=== PATIENT | female | born 1970 | race Caucasian/White ===

== ENCOUNTER 2017-11-06 09:28 | Observation (INO) | payer MEDICAID ==
[~2017-11-06] VITALS: Ht 160 cm; Wt 56.8 kg
[2017-11-06 09:29] VITALS: BP 174/102; PULSE 110; RESP 18; TEMP 98.6; O2SAT 100
[2017-11-06] MEDS ORDERED: SODIUM CHLOR 0.9% 1000 ML INJ 1,000 ML IV ONE ×2 (10:00)
[2017-11-06 10:04] LABS: AUTOMATED NEUTROPHIL # 6.3 TH/MM3 (1.8-7.7); BASOPHIL # 0.1 TH/MM3 (0-0.2); BASOPHIL % 0.8 % (0.0-2.0); EOSINOPHIL # 0.3 TH/MM3 (0-0.4); EOSINOPHIL % 3.2 % (0.0-4.0); HEMATOCRIT 44.4 % (35.0-46.0); HEMO FLAGS DIFF FINAL; LYMPHOCYTE # 1.3 TH/MM3 (1.0-4.8); MEAN CELL VOLUME 83.1 FL (80.0-100.0); MEAN CORPUSCULAR HEMOGLOBIN 27.5 PG (27.0-34.0); MEAN CORPUSCULAR HGB CONC 33.1 % (32.0-36.0); MONO % 6.8 % (0.0-8.0); NEUT % 74.2 % (16.0-70.0); PLATELET COUNT 227 TH/MM3 (150-450); RED BLOOD COUNT 5.34 MIL/MM3 (4.00-5.30); RED CELL DISTRIBUTION WIDTH 15.9 % (11.6-17.2); WHITE BLOOD COUNT 8.5 TH/MM3 (4.0-11.0)
[2017-11-06 10:07] LABS: BLOOD, URINE NEG (NEG); COMMENT (UR) CULT NOT INDICATED; CULTURE IF INDICATED CULT NOT INDICATED; GLUCOSE,URINE 1000 mg/dL (NEG); KETONE, URINE 150 mg/dL (NEG); MUCUS URINE FEW /lpf (OCC); NITRITE,URINE NEG (NEG); SQUAMOUS EPITHELIAL CELL URINE <1 /hpf (0-5); URINE COLOR COLORLESS (YELLW/STRAW)
[2017-11-06 10:22] LABS: ALT (GPT) 18 U/L (10-53); ANION GAP 14 MEQ/L (5-15); AST (GOT) 9 U/L (15-37); BICARBONATE 16.6 MEQ/L (21.0-32.0); BLOOD UREA NITROGEN 13 MG/DL (7-18); CHLORIDE 99 MEQ/L (98-107); GLOMERULAR FILTRATION RATE 76 ML/MIN (>89); SODIUM (NA) 130 MEQ/L (136-145)
[2017-11-06 10:24] LABS: TOTAL BILIRUBIN ADULT 0.4 MG/DL (0.2-1.0)
[2017-11-06 10:27] LABS: ALKALINE PHOSPHATASE 106 U/L (45-117)
--- NOTE | 2017-11-06 10:42 | PD ---
HPI Chief Complaint: Diabetic Time Seen by Provider: 09:49 Travel History International Travel<30 days: No Contact w/Intl Traveler<30days: No Traveled to known affect area: No History of Present Illness HPI 47-year-old presents to the emergency department feeling poorly for the past several months, especially over the past week, found to have hyperglycemia. She states that she feeling poorly since about July. Over the past week she's felt especially bad with increased thirst, loss, frequent urination. She is a strong family history diabetes. She checked her blood sugar on her mom's meter and her blood sugar significant only elevated so she came to the emergency department. History Past Medical History Medical History: Denies Significant Hx Tetanus Vaccination: > 5 Years Influenza Vaccination: No LMP: 10/25/17 : 3 Past Surgical History Surgical History: No Previous Surgery Social History Alcohol Use: No Tobacco Use: No Allergies-Medications (Allergen,Severity, Reaction): Coded Allergies: No Known Allergies (Verified Allergy, Unknown, 11/06/17) Reported Meds & Prescriptions Reported Meds & Active Scripts Active No Active Prescriptions or Reported Medications Review of Systems Except as stated in HPI: all other systems reviewed are Neg Physical Exam Narrative GENERAL: 47-year-old woman, no acute distress. SKIN: Focused skin assessment warm/dry. Decreased skin turgor. HEAD: Atraumatic. Normocephalic. EYES: Pupils equal and round. No scleral icterus. No injection or drainage. ENT: No nasal bleeding or discharge. Mucous membranes pink and moist. NECK: Trachea midline. No JVD. CARDIOVASCULAR: Heart rate rapid. Regular rate and rhythm. No murmur appreciated. RESPIRATORY: No accessory muscle use. Clear to auscultation. Breath sounds equal bilaterally. GASTROINTESTINAL: Abdomen soft, non-tender, nondistended. Hepatic and splenic margins not palpable. MUSCULOSKELETAL: No obvious deformities. No edema. NEUROLOGICAL: Awake and alert. No obvious cranial nerve deficits. Motor grossly within normal limits. Normal speech. Data Data Last Documented VS Vital Signs Date Time Temp Pulse Resp B/P (MAP) Pulse Ox O2 Delivery O2 Flow Rate FiO2 11/06/17 12:23 97.8 98 16 131/80 (97) 100 Room Air Orders Orders Complete Blood Count With Diff (11/06/17 09:50) Comprehensive Metabolic Panel (11/06/17 09:50) Urinalysis - C+S If Indicated (11/06/17 09:50) Iv Access Insert/Monitor (11/06/17 09:50) Sodium Chlor 0.9% 1000 Ml Inj (Ns 1000 M (11/06/17 10:00) Sodium Chlor 0.9% 1000 Ml Inj (Ns 1000 M (11/06/17 10:00) Insulin Aspart Inj (Novolog Inj) (11/06/17 10:45) Blood Gas Venous (Vbg) (11/06/17 10:58) Ondansetron Inj (Zofran Inj) (11/06/17 11:00) Beta Hydroxybutyrate (Acetone) (11/06/17 11:57) Admit Order (Ed Use Only) (11/06/17 ) Labs Laboratory Tests Test 11/06/17 09:50 11/06/17 10:58 White Blood Count 8.5 TH/MM3 Red Blood Count 5.34 MIL/MM3 Hemoglobin 14.7 GM/DL Hematocrit 44.4 % Mean Corpuscular Volume 83.1 FL Mean Corpuscular Hemoglobin 27.5 PG Mean Corpuscular Hemoglobin Concent 33.1 % Red Cell Distribution Width 15.9 % Platelet Count 227 TH/MM3 Mean Platelet Volume 7.7 FL Neutrophils (%) (Auto) 74.2 % Lymphocytes (%) (Auto) 15.0 % Monocytes (%) (Auto) 6.8 % Eosinophils (%) (Auto) 3.2 % Basophils (%) (Auto) 0.8 % Neutrophils # (Auto) 6.3 TH/MM3 Lymphocytes # (Auto) 1.3 TH/MM3 Monocytes # (Auto) 0.6 TH/MM3 Eosinophils # (Auto) 0.3 TH/MM3 Basophils # (Auto) 0.1 TH/MM3 CBC Comment DIFF FINAL Differential Comment Urine Color COLORLESS Urine Turbidity CLEAR Urine pH 5.0 Urine Specific [place] 1.033 Urine Protein NEG mg/dL Urine Glucose (UA) 1000 mg/dL Urine Ketones 150 mg/dL Urine Occult Blood NEG Urine Nitrite NEG Urine Bilirubin NEG Urine Urobilinogen LESS THAN 2.0 MG/DL Urine Leukocyte Esterase NEG Urine RBC 2 /hpf Urine WBC LESS THAN 1 /hpf Urine Squamous Epithelial Cells <1 /hpf Urine Mucus FEW /lpf Microscopic Urinalysis Comment CULT NOT INDICATED Blood Urea Nitrogen 13 MG/DL Creatinine 0.81 MG/DL Random Glucose 517 MG/DL Total Protein 8.4 GM/DL Albumin 3.9 GM/DL Calcium Level 9.7 MG/DL Alkaline Phosphatase 106 U/L Aspartate Amino Transf (AST/SGOT) 9 U/L Alanine Aminotransferase (ALT/SGPT) 18 U/L Total Bilirubin 0.4 MG/DL Sodium Level 130 MEQ/L Potassium Level 4.0 MEQ/L Chloride Level 99 MEQ/L Carbon Dioxide Level 16.6 MEQ/L Anion Gap 14 MEQ/L Estimat Glomerular Filtration Rate 76 ML/MIN B-Hydroxybutyrate 5.11 MMOL/L Blood Gas Patient Temperature 98.6 Venous Blood pH 7.24 Venous Blood Partial Pressure CO2 36 mmHg Venous Blood Partial Pressure O2 31 mmHg Venous Blood HCO3 15 mmol/L Venous Blood Oxygen Saturation 52 % Venous Blood Oxygen Content 9.3 Vol % Venous Blood Base Excess -11.5 mmol/L Blood Gas Inspired Oxygen 21 % MDM Medical Decision Making Medical Screen Exam Complete: Yes Emergency Medical Condition: Yes Interpretation(s) LABS: CBC is unremarkable. CMP remarkable for bicarbonate 16.6, glucose 517, UA with glucose, some ketones VBG shows a little bit of acidosis. Differential Diagnosis Hyperglycemia, dehydration, infection, other Narrative Course Medical decision making The 47 showed woman presents emergent department with hyperglycemia likely related to undiagnosed diabetes. She looks well. Bicarbonates a little bit low but no anion gap. Given IV fluid rehydration. We'll start on oral medications. Will need close follow-up. FINAL: 47-year-old woman, hyperglycemic what appears to be early or very mild ketoacidosis. I think she can be treated with aggressive subcutaneous insulin. I discussed with [place] hospitalist to her going to admit the patient. If she worsens at all or needs insulin drip, will admit the ICU. Diagnosis Primary Impression: Hyperglycemia Additional Impression: Ketoacidosis Admitting Information Admitting Physician Requests: Admit Scripts No Active Prescriptions or Reported Meds Holden Soria MD Nov 06, 2017 10:42
[2017-11-06] MEDS ORDERED: INSULIN ASPART 1,000 UNITS/10 ML VIAL SQ ONE (10:45)
[2017-11-06] MEDS ORDERED: ONDANSETRON HCL 4 MG/2 ML VIAL IV PUSH ONE (11:00)
[2017-11-06 11:16] LABS: BLOOD GAS VENOUS BASE EXCESS -11.5 mmol/L (-2-2); BLOOD GAS VENOUS HCO3 15 mmol/L (22-26); BLOOD GAS VENOUS O2 CONTENT 9.3 Vol % (9.0-17.0); BLOOD GAS VENOUS O2 HGB SAT 52 % (70-76); BLOOD GAS VENOUS PCO2 36 mmHg (44-48); BLOOD GAS VENOUS PO2 31 mmHg (35-40); BLOOD GAS VENOUS pH 7.24 (7.360-7.400); TEMP CORR TO 98.6
[2017-11-06 11:22] LABS: FIO2 21 %; STAT NO
[2017-11-06 12:23] VITALS: BP 131/80; PULSE 98; RESP 16; TEMP 97.8; O2SAT 100
[2017-11-06] MEDS ORDERED: SODIUM CHLOR 0.9% 1000 ML INJ 1,000 ML IV SCH (12:54)
[2017-11-06] MEDS ORDERED: DEXTROSE 50% IN WATER 50 ML VIAL(D50) IV PUSH PRN (13:00)
[2017-11-06] MEDS ORDERED: SENNOSIDES 8.6 MG TAB PO PRN (13:00)
[2017-11-06] MEDS ORDERED: BISACODYL 10 MG SUPP RECTAL PRN (13:00)
[2017-11-06] MEDS ORDERED: MAGNESIUM HYDROXIDE SUSP 30 ML CUP PO PRN (13:00)
[2017-11-06] MEDS ORDERED: SODIUM CHLORIDE 0.9% FLUSH 10 ML FLUSH IV FLUSH PRN (13:00)
[2017-11-06] MEDS ORDERED: NALOXONE HCL 0.4 MG/ML AMP IV PUSH PRN (13:00)
[2017-11-06] MEDS ORDERED: LACTULOSE SYRUP 20 GM/30 ML CUP PO PRN (13:00)
[2017-11-06] MEDS ORDERED: GLUCAGON 1 MG/ML VIAL OTHER PRN (13:00)
[2017-11-06] MEDS ORDERED: ONDANSETRON HCL 4 MG/2 ML VIAL IVP PRN (13:00)
[2017-11-06 13:03] VITALS: O2SAT 100
[2017-11-06] MEDS: SODIUM CHLOR 0.9% 1000 ML INJ 1,000 ML IV SCH (13:24)
--- NOTE | 2017-11-06 13:44 | HHI.PR ---
Objective Vitals Vital Signs Date Time Temp Pulse Resp B/P (MAP) Pulse Ox O2 Delivery O2 Flow Rate FiO2 11/06/17 13:03 100 21 11/06/17 12:23 97.8 98 16 131/80 (97) 100 Room Air 11/06/17 09:37 16 Room Air 11/06/17 09:29 98.6 110 18 174/102 (126) 100 I/O 11/05/17 11/05/17 11/05/17 11/06/17 11/06/17 11/06/17 07:00 15:00 23:00 07:00 15:00 23:00 Intake Total 2000 ml Balance 2000 ml Intake IV Total 2000 ml Result Diagram: 11/06/17 0950 11/06/17 0950 Physician Certification Order for Inpatient Services The services are ordered in accordance with Medicare regulations or non- Medicare payer requirements, as applicable. In the case of services not specified as inpatient-only, they are appropriately provided as inpatient services in accordance with the 2-midnight benchmark. days is the estimated time the patient will need to remain in the hospital, assuming treatment plan goals are met and no additional complications. Cleopatra Simons MD Nov 06, 2017 13:44
[2017-11-06] MEDS ORDERED: ENOXAPARIN SODIUM 40 MG/0.4 ML SYRINGE SQ SCH (14:00)
--- NOTE | 2017-11-06 14:02 | HHI.HP ---
[facility] Primary Care Physician No Primary Care Physician Admission Diagnosis hyperglycemia, early ketosis Diagnoses: Chief Complaint: elevated Blood sugar Travel History International Travel<30 Days: No Contact w/Intl Traveler <30 Da: No Traveled to Known Affected Are: No History of Present Illness 47-year-old presents to the emergency department feeling poorly for the past several months, especially over the past week, found to have hyperglycemia. She states that she feeling poorly since about July. Over the past week she's felt especially bad with increased thirst, loss, frequent urination. She is a strong family history diabetes. She checked her blood sugar on her mom's meter and her blood sugar significant only elevated so she came to the emergency department. Patient also felt nauseated but did not vomit. Denies chest pain, sob, palpitations. No fever or chills. No abdominal pain. Review of Systems Except as stated in HPI: all other systems reviewed are Neg Past Family Social History Past Medical History None Past Surgical History 3 CS Reported Medications Reported Meds & Active Scripts Active No Active Prescriptions or Reported Medications Allergies: Coded Allergies: No Known Allergies (Verified Allergy, Unknown, 11/06/17) Family History Mother with DM, HTN Aunt with DM, stroke Social History Denies EtOH use, tobacco use or illicit drug use Physical Exam Vital Signs Vital Signs Date Time Temp Pulse Resp B/P (MAP) Pulse Ox O2 Delivery O2 Flow Rate FiO2 11/06/17 13:03 100 21 11/06/17 12:23 97.8 98 16 131/80 (97) 100 Room Air 11/06/17 09:37 16 Room Air 11/06/17 09:29 98.6 110 18 174/102 (126) 100 Physical Exam GENERAL: This is a well-nourished, well-developed patient, in no apparent distress. SKIN: No rashes, ecchymoses or lesions. Cool and dry. HEAD: Atraumatic. Normocephalic. No temporal or scalp tenderness. EYES: Pupils equal round and reactive. Extraocular motions intact. No scleral icterus. No injection or drainage. ENT: Nose without bleeding, purulent drainage or septal hematoma. Throat without erythema, tonsillar hypertrophy or exudate. Uvula midline. Airway patent. NECK: Trachea midline. No JVD or lymphadenopathy. Supple, nontender, no meningeal signs. CARDIOVASCULAR: Regular rate and rhythm without murmurs, gallops, or rubs. RESPIRATORY: Clear to auscultation. Breath sounds equal bilaterally. No wheezes , rales, or rhonchi. GASTROINTESTINAL: Abdomen soft, non-tender, nondistended. No hepato-splenomegaly , or palpable masses. No guarding. MUSCULOSKELETAL: Extremities without clubbing, cyanosis, or edema. No joint tenderness, effusion, or edema noted. No calf tenderness. Negative Homans sign bilaterally. NEUROLOGICAL: Awake and alert. Cranial nerves II through XII intact. Motor and sensory grossly within normal limits. Five out of 5 muscle strength in all muscle groups. Normal speech. Laboratory Laboratory Tests Test 11/06/17 09:50 11/06/17 10:58 White Blood Count 8.5 Red Blood Count 5.34 Hemoglobin 14.7 Hematocrit 44.4 Mean Corpuscular Volume 83.1 Mean Corpuscular Hemoglobin 27.5 Mean Corpuscular Hemoglobin Concent 33.1 Red Cell Distribution Width 15.9 Platelet Count 227 Mean Platelet Volume 7.7 Neutrophils (%) (Auto) 74.2 Lymphocytes (%) (Auto) 15.0 Monocytes (%) (Auto) 6.8 Eosinophils (%) (Auto) 3.2 Basophils (%) (Auto) 0.8 Neutrophils # (Auto) 6.3 Lymphocytes # (Auto) 1.3 Monocytes # (Auto) 0.6 Eosinophils # (Auto) 0.3 Basophils # (Auto) 0.1 CBC Comment DIFF FINAL Differential Comment Urine Color COLORLESS Urine Turbidity CLEAR Urine pH 5.0 Urine Specific [place] 1.033 Urine Protein NEG Urine Glucose (UA) 1000 Urine Ketones 150 Urine Occult Blood NEG Urine Nitrite NEG Urine Bilirubin NEG Urine Urobilinogen LESS THAN 2.0 Urine Leukocyte Esterase NEG Urine RBC 2 Urine WBC LESS THAN 1 Urine Squamous Epithelial Cells <1 Urine Mucus FEW Microscopic Urinalysis Comment CULT NOT INDICATED Blood Urea Nitrogen 13 Creatinine 0.81 Random Glucose 517 Total Protein 8.4 Albumin 3.9 Calcium Level 9.7 Alkaline Phosphatase 106 Aspartate Amino Transf (AST/SGOT) 9 Alanine Aminotransferase (ALT/SGPT) 18 Total Bilirubin 0.4 Sodium Level 130 Potassium Level 4.0 Chloride Level 99 Carbon Dioxide Level 16.6 Anion Gap 14 Estimat Glomerular Filtration Rate 76 B-Hydroxybutyrate 5.11 Blood Gas Patient Temperature 98.6 Venous Blood pH 7.24 Venous Blood Partial Pressure CO2 36 Venous Blood Partial Pressure O2 31 Venous Blood HCO3 15 Venous Blood Oxygen Saturation 52 Venous Blood Oxygen Content 9.3 Venous Blood Base Excess -11.5 Blood Gas Inspired Oxygen 21 Result Diagram: 11/06/1794911/06/1750 Caprini VTE Risk Assessment Caprini VTE Risk Assessment: Mod/High Risk (score >= 2) Caprini Risk Assessment Model Point Value = 1 Point Value = 2 Point Value = 3 Point Value = 5 Age 41-60 Minor surgery BMI > 25 kg/m2 Swollen legs Varicose veins or History of unexplained or recurrent spontaneous Oral contraceptives or hormone replacement Sepsis (< 1 month) Serious lung disease, including pneumonia (< 1 month) Abnormal pulmonary function Acute myocardial infarction Congestive heart failure (< 1 month) History of inflammatory bowel disease Medical patient at bed rest Age 61-74 Arthroscopic surgery Major open surgery (> 45 min) Laparoscopic surgery (> 45 min) Malignancy Confined to bed (> 72 hours) Immobilizing plaster cast Central venous access Age >= 75 History of VTE Family history of VTE Factor V Leiden Prothrombin [id number] Lupus anticoagulant Anticardiolipin antibodies Elevated serum homocysteine Heparin-induced thrombocytopenia Other congenital or acquired thrombophilia Stroke (< 1 month) Elective arthroplasty Hip, pelvis, or leg fracture Acute spinal cord injury (< 1 month) Prophylaxis Regimen Total Risk Factor Score Risk Level Prophylaxis Regimen 0-1 Low Early ambulation 2 Moderate Order ONE of the following: *Sequential Compression Device (SCD) *Heparin 5000 units SQ BID 3-4 Higher Order ONE of the following medications: *Heparin 5000 units SQ TID *Enoxaparin/Lovenox 40 mg SQ daily (WT < 150 kg, CrCl > 30 mL/min) *Enoxaparin/Lovenox 30 mg SQ daily (WT < 150 kg, CrCl > 10-29 mL/min) *Enoxaparin/Lovenox 30 mg SQ BID (WT < 150 kg, CrCl > 30 mL/min) AND/OR *Sequential Compression Device (SCD) 5 or more Highest Order ONE of the following medications: *Heparin 5000 units SQ TID (Preferred with Epidurals) *Enoxaparin/Lovenox 40 mg SQ daily (WT < 150 kg, CrCl > 30 mL/min) *Enoxaparin/Lovenox 30 mg SQ daily (WT < 150 kg, CrCl > 10-29 mL/min) *Enoxaparin/Lovenox 30 mg SQ BID (WT < 150 kg, CrCl > 30 mL/min) AND *Sequential Compression Device (SCD) Assessment and Plan Assessment and Plan 47-year-old woman, hyperglycemic what appears to be early or very mild ketoacidosis. New onset DM Ketoacidosis BHB is elevated at 5.1 on admission BS on admission of 517, AG of 14 Received bolusof insulin 8U in the ED Currently BD in 200s Will monitor BS , start accucheks and start ISS low and Levemir 5 U BID Monitor VS Monitor BMP, replace K if need Received boluses IVF in the ED Continue IVF NS DVT ppx SCD/TEDs/lovenox Discussed Condition With Patient, nurse Dr Yang MCCLENDON physician Cleopatra Simons MD Nov 06, 2017 14:02
[2017-11-06 14:44] VITALS: BP 124/78; TEMP 97.8
[2017-11-06] MEDS: INSULIN ASPART SUPPLEMENTAL SCALE SQ SCH ×2 (15:53→21:53)
[2017-11-06 16:03] VITALS: BP 142/79; PULSE 94; RESP 20; TEMP 98.1; O2SAT 96
[2017-11-06 20:18] VITALS: BP 128/76; PULSE 89; RESP 20; TEMP 98.2; O2SAT 100
[2017-11-06 21:22] LABS: ALKALINE PHOSPHATASE 81 U/L (45-117); ALT (GPT) 18 U/L (10-53); ANION GAP 12 MEQ/L (5-15); AST (GOT) 15 U/L (15-37); BETA-HYDROXYBUTYRATE 3.69 MMOL/L (0.00-0.39); BICARBONATE 18.6 MEQ/L (21.0-32.0); BLOOD UREA NITROGEN 10 MG/DL (7-18); CHLORIDE 106 MEQ/L (98-107); GLOMERULAR FILTRATION RATE 93 ML/MIN (>89); MAGNESIUM 1.8 MG/DL (1.5-2.5); POTASSIUM 3.4 MEQ/L (3.5-5.1); SODIUM (NA) 137 MEQ/L (136-145); TOTAL BILIRUBIN ADULT 0.3 MG/DL (0.2-1.0)
[2017-11-06] MEDS: SODIUM CHLORIDE 0.9% FLUSH 10 ML FLUSH IV FLUSH SCH (21:52)
[2017-11-06] MEDS: INSULIN DETEMIR 100 UNITS/ML VIAL SQ SCH (21:52)
[2017-11-06] MEDS: DOCUSATE SODIUM 50 MG/SENNA 8.6 MG TAB PO SCH (21:52)
[2017-11-07 00:31] VITALS: BP 111/71; PULSE 89; RESP 22; TEMP 98.8; O2SAT 97
[2017-11-07] MEDS: SODIUM CHLOR 0.9% 1000 ML INJ 1,000 ML IV SCH ×2 (00:35→12:06)
[2017-11-07 03:49] VITALS: BP 122/74; PULSE 86; RESP 20; TEMP 98; O2SAT 99
[2017-11-07 05:27] LABS: AUTOMATED NEUTROPHIL # 3.6 TH/MM3 (1.8-7.7); BASOPHIL # 0.1 TH/MM3 (0-0.2); EOSINOPHIL # 0.4 TH/MM3 (0-0.4); EOSINOPHIL % 5.4 % (0.0-4.0); HEMATOCRIT 36.2 % (35.0-46.0); HEMO FLAGS DIFF FINAL; LYMPH % 29.7 % (9.0-44.0); LYMPHOCYTE # 1.9 TH/MM3 (1.0-4.8); MEAN CELL VOLUME 81.2 FL (80.0-100.0); MEAN CORPUSCULAR HEMOGLOBIN 28.1 PG (27.0-34.0); MEAN CORPUSCULAR HGB CONC 34.6 % (32.0-36.0); MONO % 8.3 % (0.0-8.0); NEUT % 55.6 % (16.0-70.0); PLATELET COUNT 160 TH/MM3 (150-450); RED BLOOD COUNT 4.46 MIL/MM3 (4.00-5.30); RED CELL DISTRIBUTION WIDTH 16.1 % (11.6-17.2); WHITE BLOOD COUNT 6.5 TH/MM3 (4.0-11.0)
[2017-11-07] MEDS ORDERED: ACETAMINOPHEN 325 MG TAB PO PRN (05:30)
[2017-11-07 05:56] LABS: ANION GAP 11 MEQ/L (5-15); BICARBONATE 20.1 MEQ/L (21.0-32.0); BLOOD UREA NITROGEN 7 MG/DL (7-18); CHLORIDE 110 MEQ/L (98-107); GLOMERULAR FILTRATION RATE 167 ML/MIN (>89); HDL CHOLESTEROL 31.6 MG/DL (40.0-60.0); LDL CHOLESTEROL 78 MG/DL (0-99); SODIUM (NA) 141 MEQ/L (136-145)
[2017-11-07 08:00] VITALS: BP 128/76; PULSE 67; RESP 20; TEMP 98.4; O2SAT 98
[2017-11-07] MEDS: INSULIN ASPART SUPPLEMENTAL SCALE SQ SCH ×2 (08:00→12:00)
[2017-11-07] MEDS: INSULIN DETEMIR 100 UNITS/ML VIAL SQ SCH (08:55)
[2017-11-07] MEDS: DOCUSATE SODIUM 50 MG/SENNA 8.6 MG TAB PO SCH (09:00)
[2017-11-07] MEDS ORDERED: POTASSIUM CHLORIDE 25 MEQ EFFERVESCENT TAB PO ONE (11:15)
[2017-11-07 12:00] VITALS: BP 130/73; PULSE 99; RESP 16; TEMP 98.8; O2SAT 99
[2017-11-07] MEDS: SODIUM CHLORIDE 0.9% FLUSH 10 ML FLUSH IV FLUSH SCH (12:05)
[2017-11-07] MEDS ORDERED: BLOOD GLUCOSE T1 TES (12:21)
[2017-11-07] MEDS ORDERED: METF500T PO (12:21)
[2017-11-07] MEDS ORDERED: NOVO7030P2 SQ (12:21)
[2017-11-07] MEDS ORDERED: INSU-118 (12:21)
[2017-11-07] MEDS ORDERED: BLOOD GLUCOSE M1 KIT (12:21)
[2017-11-07] MEDS ORDERED: POTA10TA2 PO (12:21)
[2017-11-07] MEDS ORDERED: INSUINJ5 SQ (12:21)
--- NOTE | 2017-11-07 12:22 | HHI.DCPOC ---
Discharge Care Plan Diagnosis: (1) Diabetes Goals to Promote Your Health * To prevent worsening of your condition and complications * To maintain your health at the optimal level Directions to Meet Your Goals Take your medications as prescribed Follow your dietary instruction Follow activity as directed Keep your appointments as scheduled Take your immunizations and boosters as scheduled If your symptoms worsen call your PCP, if no PCP go to Urgent Care Center or Emergency Room Smoking is Dangerous to Your Health. Avoid second hand smoke Call the 24-hour hour crisis hotline for domestic abuse at Adali Lacey MD Nov 07, 2017 12:22
--- NOTE | 2017-11-07 12:26 | HHI.DS ---
Discharge Summary Admission Date Nov 06, 2017 at 12:54 Discharge Date: Nov 07, 2017 Admitting Diagnosis hyperglycemia, early ketosis (1) Metabolic acidosis ICD Code: E87.2 - Acidosis Diagnosis: Principal (2) Diabetes mellitus, new onset ICD Code: E11.9 - Type 2 diabetes mellitus without complications Diagnosis: Principal Procedures see hospital course Brief History - From Admission 47-year-old presents to the emergency department feeling poorly for the past several months, especially over the past week, found to have hyperglycemia. She states that she feeling poorly since about July. Over the past week she's felt especially bad with increased thirst, loss, frequent urination. She is a strong family history diabetes. She checked her blood sugar on her mom's meter and her blood sugar significant only elevated so she came to the emergency department. Patient also felt nauseated but did not vomit. Denies chest pain, sob, palpitations. No fever or chills. No abdominal pain. CBC/BMP: 11/07/17 0421 11/07/17 0421 Significant Findings Laboratory Tests Test 11/06/17 09:50 11/06/17 10:58 11/06/17 20:22 11/07/17 04:21 Red Blood Count 5.34 MIL/MM3 (4.00-5.30) Neutrophils (%) (Auto) 74.2 % (16.0-70.0) Urine Glucose (UA) 1000 mg/dL (NEG) Urine Ketones 150 mg/dL (NEG) Urine Mucus FEW /lpf (OCC) Random Glucose 517 MG/DL (74-106) 339 MG/DL (74-106) 151 MG/DL (74-106) Total Protein 8.4 GM/DL (6.4-8.2) Aspartate Amino Transf (AST/SGOT) 9 U/L (15-37) Sodium Level 130 MEQ/L (136-145) Carbon Dioxide Level 16.6 MEQ/L (21.0-32.0) 18.6 MEQ/L (21.0-32.0) 20.1 MEQ/L (21.0-32.0) Estimat Glomerular Filtration Rate 76 ML/MIN (>89) B-Hydroxybutyrate 5.11 MMOL/L (0.00-0.39) 3.69 MMOL/L (0.00-0.39) Venous Blood pH 7.24 (7.360-7.400) Venous Blood Partial Pressure CO2 36 mmHg (44-48) Venous Blood Partial Pressure O2 31 mmHg (35-40) Venous Blood HCO3 15 mmol/L (22-26) Venous Blood Oxygen Saturation 52 % (70-76) Venous Blood Base Excess -11.5 mmol/L (-2-2) Albumin 3.1 GM/DL (3.4-5.0) Calcium Level 8.2 MG/DL (8.5-10.1) 8.3 MG/DL (8.5-10.1) Phosphorus Level 1.8 MG/DL (2.5-4.9) Potassium Level 3.4 MEQ/L (3.5-5.1) 3.0 MEQ/L (3.5-5.1) Monocytes (%) (Auto) 8.3 % (0.0-8.0) Eosinophils (%) (Auto) 5.4 % (0.0-4.0) Creatinine 0.41 MG/DL (0.50-1.00) Chloride Level 110 MEQ/L (98-107) HDL Cholesterol 31.6 MG/DL (40.0-60.0) Test 11/07/17 08:36 B-Hydroxybutyrate 4.60 MMOL/L (0.00-0.39) PE at Discharge GENERAL: in NAD NECK: Supple, trachea midline. No JVD or lymphadenopathy. CARDIOVASCULAR: Regular rate and rhythm without murmurs, gallops, or rubs. RESPIRATORY: Breath sounds equal bilaterally. No accessory muscle use. GASTROINTESTINAL: Abdomen soft, non-tender, nondistended. MUSCULOSKELETAL: No cyanosis, or edema. BACK: Nontender without obvious deformity. No CVA tenderness. Pt update on day of discharge f/u for mild acidosis and new onset diabetes patient stated she feels better Denied any N/V or abdominal pain. She stated she is feeling well. Diabetes educated spoke to patient and I reviewed diabetes with patient. She stated she understood and no further questions. Hospital Course 47-year-old woman, presented with Nausea and vomiting with mild abdominal pain. Labs revealed BS in 500s and mild acidosis. Patient treated with low dose of levemir and SSI IVFs, antiemetics.. Symptom resolved quickly. She had extensive education by provider and early childhood educator aide on diagnosis, treatment, and management. Patient stated she understand. On day of discharge she was asymptomatic. HgA1C was pending. Patient told to follow with her PCP in regards to this and her newly diagnosis of diabetes. Also stated need to repeat BMP with her PCP in 3-5 days. Explained in detail all new medications. Pt Condition on Discharge: Good Discharge Disposition: Discharge Home Discharge Time: > 30 minutes Discharge Instructions DIET: Follow Instructions for: Diabetic Diet Activities you can perform: Regular-No Restrictions Follow up Referrals: PCP Follow-up - 11/10/17 New Medications: Blood Glucose Monitoring W/Device (Blood Glucose Monitoring W/Device) 1 Kit Kit KIT .ROUTE DIRECTED for Blood Sugar Management, #1 0 Refills Blood Glucose Test Strips (Blood Glucose Test Strips) Strips Strip EA .ROUTE DIRECTED for Blood Sugar Management, #1 0 Refills [employer] Insulin Syringes/ 31G X 5/16" 0.5 ml ([employer] Insulin Syringes/ 31G X 5/ 16" 0.5 ml) 31 Gauge X 5/16" Mis BOX .ROUTE DIRECTED for Blood Sugar Management, #1 Insulin Human Isophane-Regular 70-30 Inj (Novolin 70-30 Inj) 1,000 Unit/10 Ml Vial 3 UNITS SQ DAILY@1600 for Blood Sugar Management, #1 VIAL 0 Refills Insulin NPH Isophane-Reg (Human) 70-30 Inj (Novolin 70-30 Relion Inj) 100 Unit/ Ml Inj 7 UNIT SQ DAILYAC for diabetes, #1 VIAL 0 Refills Metformin (Metformin) 500 Mg Tab 500 MG PO BIDPC for Blood Sugar Management, #60 TAB 0 Refills Potassium Chloride ER (Potassium Chloride ER) 10 Meq Tab 10 MEQ PO DAILY for Electrolyte Replacement, #5 TAB 0 Refills Adali Lacey MD Nov 07, 2017 12:26
[2017-11-07 16:34] LABS: HEMOGLOBIN Ao 73.6 %; HEMOGLOBIN F 4.9 %; HEMOGLOBIN LA1C 2.4 %; HEMOGLOBIN P3 4.5 %
[2017-11-09 10:14] LABS: CRITICAL VALUE YES
== END 2017-11-07 16:49 | disposition home or self-care (01) ==
LOC: NEPE 09:28 → INTOOBSV 12:54 → NEDA 12:54 → NEPGCP 14:46
PROVIDERS: ADMIT Family Medicine; ATTEND Family Medicine
DX: E11.10 Type 2 diabetes mellitus with ketoacidosis without coma (principal); E87.2 Acidosis; R35.0 Frequency of micturition; R10.9 Unspecified abdominal pain; R11.2 Nausea with vomiting, unspecified; Z83.3 Family history of diabetes mellitus; Z71.3 Dietary counseling and surveillance
CPT/HCPCS: 80048; 80053; 80061; 81001; 82010; 82805; 82948; 83036; 83735; 84100; 85025; 96361; 96372; 96374; 97163; 99285; G0378; G8987; G8988; J1650; J1815; J2405; J7030; 96360